=== PATIENT | female | born 1985 | race Caucasian/White ===

== ENCOUNTER 2018-08-02 16:12 | Emergency (ER) | payer OTHER ==
[2018-08-02 16:58] VITALS: RESP 18; TEMP 98.2
[2018-08-02 17:27] VITALS: BP 130/95; PULSE 82; O2SAT 95
[2018-08-02] MEDS ORDERED: BACITRACIN 500 U/GM OIN TOP ONE ×2 (17:37→17:45)
== END 2018-08-02 18:04 | disposition home or self-care (01) | DRG 999 ==
LOC: ED 16:12
DX: Y04.2XXA Assault by strike against or bumped into by another person, initial encounter (principal); S60.221A Contusion of right hand, initial encounter; F43.10 Post-traumatic stress disorder, unspecified; R40.2362 Coma scale, best motor response, obeys commands, at arrival to emergency department; R40.2142 Coma scale, eyes open, spontaneous, at arrival to emergency department; R40.2252 Coma scale, best verbal response, oriented, at arrival to emergency department; R51 Headache
CPT/HCPCS: 70450; 70486; 73130; 99284; A9270-GY